=== PATIENT | male | born 1955 | race Caucasian/White ===

== ENCOUNTER 2016-08-11 10:55 | Emergency (ER) | payer OTHER ==
[~2016-08-11] VITALS: Ht 172.7 cm; Wt 120.6 kg
[~2016-08-11 10:55] MED LIST: ASPIR-LOW81 MG PO; INDOCIN25 MG PO; LISINOPRIL-HCT1 EACH PO; NOHOMEMEDS; NORCO 7.5/321 TABLET PO
[2016-08-11 11:39] LABS: EOSINOPHIL (%) 1.9 % (0-5); EOSINOPHIL COUNT 0.2 K/uL (0-0.3); HEMATOCRIT 45.9 % (38.0-50.0); IMMATURE GRANULOCYTE (%) 0.6 % (0.0-0.7); IMMATURE GRANULOCYTE COUNT 0.5 K/uL; LYMPHOCYTE COUNT 2.4 K/uL (1.0-2.8); MCH 30.6 PG (29.0-34.0); MCHC 34.2 G/DL (30.0-36.0); MCV 89.5 FL (86-99); MEAN PLAT.VOLUME 10.8 uM^3 (9.0-12.4); MONOCYTE (%) 10.1 % (3-12); MONOCYTE COUNT 0.9 K/uL (0-0.8); NEUTROPHIL (%) 59.8 % (45-76); NEUTROPHIL COUNT 5.3 K/uL (1.8-6.4); PLATELET COUNT 259 K/uL (156-360); RBC DIS.WIDTH-SD 44.6 % (39-53); RED BLOOD COUNT 5.13 M/uL (4.00-5.50); WHITE BLOOD COUNT 8.8 K/uL (4.1-10.2)
[2016-08-11] MEDS ORDERED: K-PHOS ORIGINA500 M1 PO (11:40)
[2016-08-11] MEDS ORDERED: ATORVASTATIN CA80 MG PO (11:41)
[2016-08-11] MEDS ORDERED: ROCALTROL0.25 MCG PO (11:41)
[2016-08-11] MEDS ORDERED: NORVASC10 MG PO (11:41)
[2016-08-11] MEDS ORDERED: BENAZEPRIL HCL10 MG PO (11:41)
[2016-08-11] MEDS ORDERED: WARFARIN SODIUM10 MG PO (11:42)
[2016-08-11] MEDS ORDERED: GLUCOPHAGE500 MG PO (11:42)
[2016-08-11] MEDS ORDERED: HUMIRA40 MG/0.8 SC (11:42)
[2016-08-11 11:47] LABS: INTER. NORMALIZED RATIO 1.6; PROTHROMBIN TIME 16.1 (9.2-11.2)
[2016-08-11 11:49] LABS: CHLORIDE 108 mEq/L (99-109); POTASSIUM 4.7 mEq/L (3.7-5.4); SODIUM 137 mEq/L (136-147)
[2016-08-11 11:52] LABS: GLUCOSE 136 mg/dL (70-99)
[2016-08-11 11:53] LABS: ANION GAP 11 MEQ/L (2-14)
[2016-08-11 11:55] LABS: ALKALINE PHOSPHATASE 66 IU/L (3-129); GFR ESTIMATE (CALCULATED) 47 mL/min/
[2016-08-11 11:56] LABS: UREA NITROGEN (BUN) 21 mg/dL (9-23)
[2016-08-11] MEDS ORDERED: COLACE100 MG PO (12:57)
[2016-08-11] MEDS ORDERED: PERCOCET 5/31 TABLET PO (12:57)
[2016-08-11 14:25] VITALS: BP 119/69
== END 2016-08-11 14:26 | disposition home or self-care (01) ==
LOC: EME 10:55
PROVIDERS: Emergency Medicine
DX: S30.1XXA Contusion of abdominal wall, initial encounter (principal); W22.8XXA Striking against or struck by other objects, initial encounter; Y99.0 Civilian activity done for income or pay; Z79.01 Long term (current) use of anticoagulants; Z86.711 Personal history of pulmonary embolism; Z86.718 Personal history of other venous thrombosis and embolism; J45.909 Unspecified asthma, uncomplicated; I10 Essential (primary) hypertension; Z87.442 Personal history of urinary calculi; Z79.82 Long term (current) use of aspirin; Z87.891 Personal history of nicotine dependence
CPT/HCPCS: 74177; 80053; 81003; 85025; 85610; 99281; 99285; J2270; J2405; J7030